=== PATIENT | female | born 1985 | race Caucasian/White ===

== ENCOUNTER 2016-10-29 01:43 | Emergency (ER) | payer OTHER ==
[~2016-10-29] VITALS: Ht 167.6 cm; Wt 114.8 kg
[~2016-10-29 01:43] MED LIST: ALBU1AER9 INH; GABA1CAP PO; INDO-24 PO; MIDO5TAB PO; MONT1TAB3 PO; NPR500 PO; SIMV20TA2 PO; SPIR50TA3 PO; TOPI25TA99 PO; ZNT/150 PO
[2016-10-29 01:45] VITALS: TEMP 37; Ht 167.6 cm; Wt 114.8 kg
[2016-10-29] MEDS ORDERED: ALBUT/IPRATROP 3MG/0.5MG NEB 3 ML VIAL ONE (01:50)
[2016-10-29] MEDS ORDERED: METHYLPREDNISOLONE 125 MG VIAL IV STA (01:51)
[2016-10-29] MEDS ORDERED: ALBUT/IPRATROP 3MG/0.5MG NEB 3 ML VIAL INH STA ×2 (01:51→02:09)
[2016-10-29 02:03] VITALS: O2SAT 98
[2016-10-29 02:14] LABS: BASO % 0.3 %; BASO ABS # 0.04 K/uL (0-0.2); COMPLETE YES; EOS % 3.3 %; HEMATOCRIT 39.4 % (37-47); IG% 0.3 %; LYMPH % 20.6 %; MEAN CORPUSCULAR HEMOGLOBIN 30.5 pg (25-34); MEAN PLATELET VOLUME 10.9 fL (7.4-10.4); MONO % 6.4 %; NEUT % 69.1 %; PLATELET COUNT 227 K/uL (130-400); RED BLOOD COUNT 4.53 M/uL (4.2-5.4); WHITE BLOOD COUNT 13.57 K/uL (4.8-10.8)
[2016-10-29 02:37] LABS: CALCIUM 8.8 mg/dl (8.5-10.1); CREATININE 0.96 mg/dl (0.60-1.20); POTASSIUM 3.6 mmol/L (3.5-5.1)
--- NOTE | 2016-10-29 03:11 | EMERGENCY ROOM VISIT NOTE ---
History First contact with patient: 01:49 Chief Complaint: RESPIRATORY PROBLEMS Stated Complaint: TROUBLE BREATHING Nursing Triage Summary: Patient reports trouble breathing since but was sick 1 week prior. Hx asthma. History of Present Illness The patient is a 30 year old female who presents to the Emergency Room with complaints of cough, congestion, wheezing and difficulty breathing for the past week that has been getting progressively worse. Patient suffers from asthma. She tried her inhaler with no relief of symptoms. Patient denies chest pain, headache, neck stiffness, earache, abdominal pain, vomiting, diarrhea. She is tolerating by mouth fluids and food. Review of Systems See HPI for pertinent positives & negatives. A total of 10 systems reviewed and were otherwise negative. Past Medical/Surgical History Medical Problems: (1) Asthma, Unspecified, W (Acute) Exacerbation (2) Diab Debbie Wo Compl, Type Ii Or Unspec Type, Not Uncntrld (3) Diabetes mellitus type 2, uncontrolled, without complications (4) Esophageal Reflux (5) Esophageal reflux (6) Pneumonia, Organism Nos (7) Unspecified asthma Family History Cancer Diabetes mellitus Gallbladder disease Heart disease Hypertension Lung disease Social History Smoking Status: Never Smoker Alcohol Use: none Marital Status: single Housing Status: lives with family Occupation Status: employed Current/Historical Medications Scheduled Gabapentin (Neurontin), 100 MG PO UD Indomethacin (Indocin), 50 MG PO BID Midodrine Hcl (Midodrine Hcl), 5 MG PO Q12 Montelukast Sodium (Singulair), 10 MG PO DAILY Naproxen (Naprosyn), 500 MG PO Q12HR Ranitidine Hcl (Zantac), 150 MG PO Q12HR Simvastatin (Zocor), 20 MG PO HS Spironolactone (Aldactone), 50 MG PO BID Topiramate (Topamax ), 25 MG PO BID Scheduled PRN Albuterol Sulfate (Proair Hfa), 2 PUFFS INH Q4-6HR PRN PRN for Wheezing Allergies Coded Allergies: Metformin (Verified Allergy, Unknown, UNK, 09/08/15) Codeine (Unverified Adverse Reaction, Unknown, NAUSEA/VOMITING, 09/08/15) Uncoded Allergies: METALS,KAREEM (Allergy, Unknown, 10/03/02) RED DYE ARTIFICIAL RASPBERRY (Allergy, Unknown, 10/03/02) Physical Exam Vital Signs Date Time Temp Pulse Resp B/P Pulse Ox O2 Delivery O2 Flow Rate FiO2 10/29/16 02:03 98 Room Air 10/29/16 01:45 37.0 123 18 158/88 98 Room Air Physical Exam PHYSICAL EXAM: Vital Signs: Reviewed Nurse's notes. Oxygen saturation was 98% on room air. GENERAL: Pleasant female, Alert, oriented and coherent. The patient is not able to speak in complete sentences. NECK: Supple, non-tender. CHEST: Symmetrical expansion. no retractions + accessory muscle use. HEART: Regular rate and normal heart sounds, no murmur, gallop or rub. LUNGS: Breath sounds equal but significantly diminished in intensity on both sides. Bilateral wheezes heard but no rales or pleuritic rub. SKIN: The skin was without rashes, erythema, edema, or bruising. There is no tenting of the skin. Capillary reflex less than 2 seconds. HEAD: Normocephalic atraumatic. EARS: External auditory canals clear, tympanic membranes pearly coronel without erythema or effusion bilaterally. EYES: Pupils equal round and reactive to light and accommodation. Conjunctivae without injection, sclerae without icterus. Extraocular movements intact. NOSE: Patent, turbinates without inflammation or discharge. No sinus tenderness. MOUTH: Mucous membranes moist. Pharynx without erythema or exudate. Uvula midline. Airway patent. Tongue does not deviate. ABDOMEN: Positive bowel sounds x 4. Normal tympanic percussion. Soft, nontender, without masses or organomegaly. Guzman sign negative. No guarding or rebound tenderness. MUSCULOSKELETAL: No muscle atrophy, erythema, or edema noted. NEURO: Patient was alert and oriented to person place and time. Normal sensation to light and sharp touch. No focal neurological deficits. Medical Decision & Procedures Laboratory Results 10/29/16 02:00 Red Blood Count 4.53, Mean Corpuscular Volume 87.0, Mean Corpuscular Hemoglobin 30.5, Mean Corpuscular Hemoglobin Concent 35.0, Mean Platelet Volume 10.9, Neutrophils (%) (Auto) 69.1, Lymphocytes (%) (Auto) 20.6, Monocytes (%) (Auto) 6.4, Eosinophils (%) (Auto) 3.3, Basophils (%) (Auto) 0.3, Neutrophils # (Auto) 9.37, Lymphocytes # (Auto) 2.80, Monocytes # (Auto) 0.87, Eosinophils # (Auto) 0.45, Basophils # (Auto) 0.04 10/29/16 02:00 Test 10/29/16 02:00 White Blood Count 13.57 K/uL (4.8-10.8) Red Blood Count 4.53 M/uL (4.2-5.4) Hemoglobin 13.8 g/dL (12.0-16.0) Hematocrit 39.4 % (37-47) Mean Corpuscular Volume 87.0 fL (80-100) Mean Corpuscular Hemoglobin 30.5 pg (25-34) Mean Corpuscular Hemoglobin Concent 35.0 g/dl (32-36) Platelet Count 227 K/uL (130-400) Mean Platelet Volume 10.9 fL (7.4-10.4) Neutrophils (%) (Auto) 69.1 % Lymphocytes (%) (Auto) 20.6 % Monocytes (%) (Auto) 6.4 % Eosinophils (%) (Auto) 3.3 % Basophils (%) (Auto) 0.3 % Neutrophils # (Auto) 9.37 K/uL (1.4-6.5) Lymphocytes # (Auto) 2.80 K/uL (1.2-3.4) Monocytes # (Auto) 0.87 K/uL (0.11-0.59) Eosinophils # (Auto) 0.45 K/uL (0-0.5) Basophils # (Auto) 0.04 K/uL (0-0.2) RDW Standard Deviation 43.2 fL (36.4-46.3) RDW Coefficient of Variation 13.5 % (11.5-14.5) Immature Granulocyte % (Auto) 0.3 % Immature Granulocyte # (Auto) 0.04 K/uL (0.00-0.02) Anion Gap 11.0 mmol/L (3-11) Est Creatinine Clear Calc Drug Dose 108.2 ml/min Estimated GFR () 90.7 Estimated GFR (Non- 78.3 BUN/Creatinine Ratio 12.0 (10-20) Calcium Level 8.8 mg/dl (8.5-10.1) Medications Administered Medications (Trade) Dose Ordered Sig/Douglas Route Start Time Stop Time Status Last Admin Dose Admin Albuterol/ Ipratropium (Duoneb) 3 ml NOW STAT INH 10/29/16 01:51 10/29/16 01:53 DC 10/29/16 02:07 3 ML Methylprednisolone Sodium Succinate (Solu-Medrol IV) 125 mg NOW STAT IV 10/29/16 01:51 10/29/16 01:53 DC 10/29/16 02:07 125 MG Albuterol/ Ipratropium (Duoneb) 3 ml NOW STAT INH 10/29/16 02:09 10/29/16 02:10 DC 10/29/16 02:27 3 ML ED Course Prior records/ancillary studies reviewed. Triage Nursing notes reviewed. Additional history obtained from the family. The patient's history was concerning for respiratory difficulties. Differential diagnosis: Etiologies such as infections, reactive airway disease, pneumonia, pneumothorax , COPD, CHF, cardiac ischemia, pulmonary embolism, musculoskeletal, gastrointestinal, as well as others were entertained. Physical examination: As above ER treatment provided: Solu-Medrol, nebulizer On reassessment the patient felt better. Diagnostic interpretation by me: The labs revealed mild leukocytosis. Hyperglycemia without DKA Imaging studies: Chest x-ray with no acute consolidation, pneumothorax or free air per my interpretation This appears to be consistent with asthmatic bronchitis with hyperglycemia. Patient was neurovascularly and neurologically intact. She was well-appearing. She had great improvement after being medicated as above. She is advised to take the medications as directed and to follow-up with family care in a few days or here in the ER sooner for difficulty breathing, high fevers, chest pain , worsening signs or symptoms or as needed. By the evaluation outlined above emergent etiologies such as CHF, cardiac ischemia, pulmonary embolism, pneumonia, pneumothorax, musculoskeletal, serious bacterial infections, as well as others were deemed relatively unlikely. Patient was also advised to monitor her blood sugars with the prednisone. The pt informed about the findings as listed above. All questions were answered and pleased with the treatment. Return instructions were outlined and the patient was discharged in stable condition. Outpatient prescription management: Prednisone Referral: The patient was referred back to their primary care physician for follow-up in 2 to 3 days for a recheck of the current condition. Medical Decision As above Impression Primary Impression: Asthmatic bronchitis Additional Impression: Hyperglycemia due to type 2 diabetes mellitus Departure Information Dispostion Home / Self-Care Condition GOOD Referrals Golden Griggs III, CRNP (PCP) Patient Instructions My [facility] Additional Instructions Monitor your blood sugars while on the steroids. Albuterol Inhaler: Take 2 puffs four times daily for five days, then as needed. Prednisone 50mg: Once daily until the prescription is finished. It is best to take this earlier in the day as some patients note occasional difficulty falling asleep when taken in the late evening. Acetaminophen(Tylenol) may be used for fever or pain. Use 1000mg every six hours as needed. Avoid using more than 3000mg in a 24 hour period. (AND/OR) Ibuprofen(Motrin, Advil) may be used for fever or pain. Use 600mg every six hours as needed. Take with food. Avoid using more than 2400mg in a 24 hour period. Do not use 2400mg per day for more than three consecutive days without physician direction. Prolonged inappropriate use can lead to stomach upset or ulcers. Rest and drink plenty of fluids. Avoid smoke/smoking, fumes, dust, or any triggers in the past that may have affected your breathing. Continue current medications. Return to the ER for chest pain, difficulty breathing, fevers, vomiting, worsening of your condition, or as needed. Follow up with your primary physician this week for a recheck of your current condition. Problem Qualifiers Primary Impression: Asthmatic bronchitis Asthma severity: unspecified severity Asthma complication type: with acute exacerbation Qualified Codes: J45.901 - Unspecified asthma with (acute) exacerbation
[2016-10-29] MEDS ORDERED: OMEP40CA41 PO (03:12)
[2016-10-29] MEDS ORDERED: TPM/50 PO (03:13)
[2016-10-29] MEDS ORDERED: VNTHFA/IN INH (03:14)
[2016-10-29] MEDS ORDERED: PRED50TA PO (03:16)
[2016-10-29 03:30] VITALS: BP 137/70; PULSE 82; O2SAT 96
--- NOTE | 2016-10-29 07:33 | DIAGNOSTIC IMAGING REPORT ---
CHEST 2 VIEWS ROUTINE CLINICAL HISTORY: cough SHORTNESS OF BREATH COMPARISON STUDY: No previous studies for comparison. FINDINGS: The cardiac and mediastinal contours are normal. There is no evidence of focal pulmonary consolidation. There is no evidence of failure. No pleural effusions are visualized.[ Slight prominence of the basal markings is felt to be secondary to technical factors given the patient's large body habitus. IMPRESSION: No active disease in the chest. Electronically signed by: Errol Rice M.D. 10/29/2016 7:32 AM Dictated Date/Time: 10/29/2016 7:31 AM
== END 2016-10-29 03:30 | disposition home or self-care (01) ==
LOC: C.EDB 01:44
DX: J45.901 Unspecified asthma with (acute) exacerbation (principal); E11.65 Type 2 diabetes mellitus with hyperglycemia; K21.9 Gastro-esophageal reflux disease without esophagitis; Z87.01 Personal history of pneumonia (recurrent); Z83.3 Family history of diabetes mellitus; Z82.49 Family history of ischemic heart disease and other diseases of the circulatory system; Z79.899 Other long term (current) drug therapy

== ENCOUNTER 2016-10-31 23:31 | Emergency (ER) | payer OTHER ==
[~2016-10-31] VITALS: Ht 167.6 cm; Wt 123.3 kg
[~2016-10-31 23:31] MED LIST changes: -ALBU1AER9 INH; -NPR500 PO; +OMEP40CA41 PO; +PRED50TA PO; -TOPI25TA99 PO; +TPM/50 PO; +VNTHFA/IN INH
[2016-10-31 23:34] VITALS: TEMP 36.9; Ht 167.6 cm; Wt 123.3 kg
[2016-11-01] MEDS ORDERED: ALBUT/IPRATROP 3MG/0.5MG NEB 3 ML VIAL INH SCH
--- NOTE | 2016-11-01 00:01 | EMERGENCY ROOM VISIT NOTE ---
History Report prepared by Myesha: Salvatore Arias Under the Supervision of: Dr. Joao Gaona D.O. First contact with patient: 23:48 Chief Complaint: RESPIRATORY PROBLEMS Stated Complaint: BREATHING PROBLEMS History of Present Illness The patient is a 30 year old female who presents to the Emergency Room with complaints of intermittent respiratory problems beginning two days ago. She was seen in the ED two days ago for similar symptoms and was told to report to the ED if her symptoms continued. She has a history of asthma. The patient had a chest x-ray at her previous visit which was normal. She was placed on steroids at this time. She has been using her inhaler, but states that nothing has improved her symptoms. She also complains of a cough, and low-grade fever. The patient notes that she vomited en route to the ED today which improved her breathing. Source of History: patient Onset: two days ago Quality: other (respiratory problems) Timing: intermittent Modifying Factors (Relieving): other (vomiting) Associated Symptoms: + cough, + fevers (low-grade) Review of Systems See HPI for pertinent positives and negatives. A total of ten systems were reviewed and were otherwise negative. Past Medical & Surgical Medical Problems: (1) Asthma, Unspecified, W (Acute) Exacerbation (2) Diab Debbie Wo Compl, Type Ii Or Unspec Type, Not Uncntrld (3) Diabetes mellitus type 2, uncontrolled, without complications (4) Esophageal Reflux (5) Esophageal reflux (6) Pneumonia, Organism Nos (7) Unspecified asthma Family History Cancer Diabetes mellitus Gallbladder disease Heart disease Hypertension Lung disease Social History Smoking Status: Never Smoker Alcohol Use: none Marital Status: single Housing Status: lives with family Occupation Status: employed Current/Historical Medications Scheduled Gabapentin (Neurontin), 100 MG PO UD Indomethacin (Indocin), 50 MG PO BID Midodrine Hcl (Midodrine Hcl), 5 MG PO Q12 Montelukast Sodium (Singulair), 10 MG PO DAILY Omeprazole (Prilosec), 40 MG PO DAILY Prednisone (Prednisone), 50 MG PO DAILY Ranitidine Hcl (Zantac), 150 MG PO Q12HR Simvastatin (Zocor), 20 MG PO HS Spironolactone (Aldactone), 50 MG PO BID Topiramate (Topamax), 50 MG PO BID Scheduled PRN Albuterol Hfa (Ventolin Hfa), 2 PUFFS INH Q6H PRN for Wheezing Allergies Coded Allergies: Metformin (Verified Allergy, Unknown, UNK, 10/31/16) Codeine (Unverified Adverse Reaction, Unknown, NAUSEA/VOMITING, 10/31/16) Uncoded Allergies: METALS,KAREEM (Allergy, Unknown, 10/03/02) RED DYE ARTIFICIAL RASPBERRY (Allergy, Unknown, 10/03/02) Physical Exam Vital Signs Date Time Temp Pulse Resp B/P Pulse Ox O2 Delivery O2 Flow Rate FiO2 11/01/16 00:38 102 18 175/101 93 Room Air 10/31/16 23:34 36.9 104 24 159/92 97 Room Air Physical Exam GENERAL: Awake, alert, well-appearing, in no distress HENT: Normocephalic, atraumatic. Oropharynx unremarkable. EYES: Normal conjunctiva. Sclera non-icteric. NECK: Supple. No nuchal rigidity. FROM. No JVD. RESPIRATORY: Decreased breath sounds bilaterally. CARDIAC: Regular rate, normal rhythm. Extremities warm and well perfused. Pulses equal. ABDOMEN: Soft, non-distended. No tenderness to palpation. No rebound or guarding. No masses. RECTAL: Deferred. MUSCULOSKELETAL: Chest examination reveals no tenderness. The back is symmetrical on inspection without obvious abnormality. There is no CVA tenderness to palpation. No joint edema. LOWER EXTREMITIES: Calves are equal size bilaterally and non-tender. No edema. No discoloration. NEURO: Normal sensorium. No sensory or motor deficits noted. SKIN: No rash or jaundice noted. Medical Decision & Procedures Medications Administered Medications (Trade) Dose Ordered Sig/Douglas Route Start Time Stop Time Status Last Admin Dose Admin Albuterol/ Ipratropium (Duoneb) 3 ml Q4R INH 11/01/16 00:00 12/01/16 00:00 11/01/16 00:21 3 ML Prednisone (PredniSONE TAB) 50 mg NOW STAT PO 10/31/16 23:57 10/31/16 23:59 DC 11/01/16 00:20 50 MG ED Course 2352: The patient was evaluated in room C12B. A complete history and physical exam was performed. 2357: Ordered Prednisone Tab 50 mg PO. 0000: Ordered DuoNeb 3 mL INH. Medical Decision Differential diagnoses include but are not limited to; asthma, bronchitis, URI, and pneumonia. Patient was given DuoNeb treatment as well as prednisone. Patient on reexamination at 12:35 AM is resting in no distress states that she is much improved. Impression Primary Impression: Unspecified asthma Scribe Attestation The scribe's documentation has been prepared under my direction and personally reviewed by me in its entirety. I confirm that the note above accurately reflects all work, treatment, procedures, and medical decision making performed by me. Departure Information Dispostion Home / Self-Care Referrals Golden Griggs III, CRNP (PCP) Patient Instructions Asthma, My [facility] Additional Instructions Continue your albuterol inhaler as instructed. Continue prednisone as prescribed. Return for worsening symptoms or any concerns
[2016-11-01 00:51] VITALS: BP 131/83; PULSE 97; O2SAT 94
== END 2016-11-01 00:51 | disposition home or self-care (01) ==
LOC: C.EDB 23:31 → C.EDC 11-01 00:51
DX: J45.909 Unspecified asthma, uncomplicated (principal); E11.9 Type 2 diabetes mellitus without complications; K21.9 Gastro-esophageal reflux disease without esophagitis; Z87.01 Personal history of pneumonia (recurrent)

== ENCOUNTER → 2016-11-10 | Outpatient (CLI) | payer OTHER ==
[~2016-11-10] MED LIST changes: -PRED50TA PO
[2016-11-10 13:20] LABS: HEMATOCRIT 41.1 % (37-47); MEAN CELL VOLUME 86.2 fL (80-100); MEAN CORPUSCULAR HEMOGLOBIN 29.4 pg (25-34); MEAN CORPUSCULAR HGB CONC 34.1 g/dl (32-36); MEAN PLATELET VOLUME 10.7 fL (7.4-10.4); PLATELET COUNT 296 K/uL (130-400); RED BLOOD COUNT 4.77 M/uL (4.2-5.4); WHITE BLOOD COUNT 29.46 K/uL (4.8-10.8)
[2016-11-10 13:43] LABS: BASO % 0.2 %; BASO ABS # 0.06 K/uL (0-0.2); COMPLETE YES; EOS % 0.6 %; IG% 0.5 %; LYMPH % 33.9 %; LYMPH ABS # 9.98 K/uL (1.2-3.4); MONO % 5.2 %; NEUT % 59.6 %
[2016-11-10 13:52] LABS: ESTIMATED AVERAGE GLUCOSE 137 mg/dl; HA1C FLAG Normal (Normal)
[2016-11-10 14:00] LABS: ALT/SGPT 57 U/L (12-78); AST/SGOT 17 U/L (15-37); BLOOD UREA NITROGEN 13 mg/dl (7-18); BUN/CREATININE RATIO 15.3 (10-20); CALCIUM 8.4 mg/dl (8.5-10.1); CARBON DIOXIDE 27 mmol/L (21-32); CHLORIDE 104 mmol/L (98-107); CREATININE 0.88 mg/dl (0.60-1.20); GLUCOSE 74 mg/dl (70-99); POTASSIUM 3.5 mmol/L (3.5-5.1); SODIUM 140 mmol/L (136-145)
[2016-11-10 14:01] LABS: RATIO 5.5 mcg/mg (0-30.0)
[2016-11-10 14:11] LABS: ALB/GLOB RATIO 0.8 (0.9-2); ALKALINE PHOSPHATASE 95 U/L (45-117); CHOLESTEROL 190 mg/dl (0-200); CHOLESTEROL/HDL RATIO 3.7; HDL CHOLESTEROL 52 mg/dl; LDL CHOLESTEROL CALCULATED 102 mg/dl; TRIGLYCERIDES 181 mg/dl (0-150); VERY LOW DENSITY LIPOPROT CALC 36 mg/dl
== END | disposition home or self-care (01) ==
LOC: C.LAB 12:35
PROVIDERS: ATTEND Family Medicine
DX: E11.9 Type 2 diabetes mellitus without complications (principal); J45.909 Unspecified asthma, uncomplicated; M79.7 Fibromyalgia; R53.83 Other fatigue; E78.00 Pure hypercholesterolemia, unspecified; K21.0 Gastro-esophageal reflux disease with esophagitis; R10.9 Unspecified abdominal pain